=== PATIENT | male | born 1965 | race Caucasian/White ===

== ENCOUNTER 2021-01-16 08:25 | Emergency (ER) | payer OTHER ==
[2021-01-16 09:15] LABS: BASOPHIL 0.2 % (0-2); EOSINOPHIL 0.2 % (0-5); HCT 45.8 % (42.0-52.0); HGB 15.7 g/dl (13.2-18.0); LYMPHOCYTE 15.6 % (15-48); MCH 30.9 pg (25.0-31.0); MCHC 34.3 g/dL (32.0-36.0); MCV 90.2 fL (78.0-100.0); MONOCYTE 4.3 % (0-12); MPV 10.5 fL (6.0-9.5); NEUTROPHIL 79.2 % (41-80); NRBC 0; PLT 284 K/uL (150-400); RBC 5.08 M/uL (4.70-6.00); RDW 12.3 % (11.5-14.0); WBC 16.6 K/uL (4.0-10.5)
[2021-01-16 09:32] LABS: ALBUMIN 3.8 g/dL (3.4-5.0); BILIRUBIN - TOTAL 0.5 mg/dL (0.2-1.0); BUN/CREAT RATIO (CALC) 14.6 RATIO; CREATININE 0.96 mg/dL (0.67-1.17); GLOBULIN (CALCULATION) 3.8 g/dL; POTASSIUM 4.2 mmol/L (3.5-5.1); TOTAL PROTEIN 7.6 g/dL (6.4-8.2)
[2021-01-16 10:05] LABS: CORONAVIRUS 2019 SARS-COV-2 NEGATIVE (NEGATIVE); INFLUENZA A NAA NEGATIVE (NEGATIVE)
[2021-01-16 10:21] LABS: BILIRUBIN NEGATIVE (NEGATIVE); BLOOD NEGATIVE Ery/uL (NEGATIVE); CLARITY CLEAR (CLEAR); COLOR YELLOW (YELLOW); GLUCOSE (U) NORMAL (NORMAL); LEUKOCYTES NEGATIVE Leu/uL (NEGATIVE); NITRITE NEGATIVE (NEGATIVE); PROTEIN NEGATIVE (NEGATIVE); UROBILINOGEN 0.2 mg/dL (0.2-1.0)
[2021-01-16] MEDS ORDERED: METRONIDAZOLE500 MG PO (10:44)
[2021-01-16] MEDS ORDERED: ONDANSETRON ODT4 MG PO (10:44)
[2021-01-16] MEDS ORDERED: CIPRO500 MG PO (10:44)
[2021-01-16] MEDS ORDERED: DICYCLOMINE HCL20 MG PO (10:54)
== END 2021-01-16 10:58 | disposition home or self-care (01) ==
LOC: FER 08:25
PROVIDERS: Internal Medicine
DX: A09 Infectious gastroenteritis and colitis, unspecified (principal); I10 Essential (primary) hypertension; F17.210 Nicotine dependence, cigarettes, uncomplicated; Z20.822 Contact with and (suspected) exposure to COVID-19
CPT/HCPCS: 36415; 80053; 81003; 83690; 84484; 85025; 87205; 93005; J7120; U0002

== ENCOUNTER → 2021-03-09 | Day surgery (SDC) | payer OTHER ==
[~2021-03-09] VITALS: Ht 188 cm; Wt 102.0 kg
[~2021-03-09] MED LIST: BUPROPION XL150 MG PO; CIPRO500 MG PO; DICYCLOMINE HCL20 MG PO; METRONIDAZOLE500 MG PO; NADOLOL 20MG TA20 MG PO; ONDANSETRON ODT4 MG PO; SIMVASTATIN20 MG PO
== END | disposition home or self-care (01) ==
LOC: FAS 09:18
DX: D12.3 Benign neoplasm of transverse colon (principal); K62.1 Rectal polyp; K52.9 Noninfective gastroenteritis and colitis, unspecified; Z86.010 Personal history of colon polyps; I10 Essential (primary) hypertension; E78.00 Pure hypercholesterolemia, unspecified; F17.210 Nicotine dependence, cigarettes, uncomplicated
CPT/HCPCS: J2704; J7120

== ENCOUNTER 2021-03-15 08:56 | Emergency (ER) | payer OTHER ==
[~2021-03-15] VITALS: Ht 188 cm; Wt 99.8 kg
[2021-03-15 09:39] LABS: BASOPHIL 0.4 % (0-2); EOSINOPHIL 2.6 % (0-5); HCT 45.3 % (42.0-52.0); HGB 14.9 g/dl (13.2-18.0); LYMPHOCYTE 22.2 % (15-48); MCH 30.2 pg (25.0-31.0); MCHC 32.9 g/dL (32.0-36.0); MCV 91.7 fL (78.0-100.0); MONOCYTE 7.2 % (0-12); MPV 10.5 fL (6.0-9.5); NEUTROPHIL 67.1 % (41-80); NRBC 0; PLT 270 K/uL (150-400); RBC 4.94 M/uL (4.70-6.00); RDW 12.7 % (11.5-14.0); WBC 12.3 K/uL (4.0-10.5)
[2021-03-15 09:51] LABS: INR 0.91 (0.9-1.2); PROTHROMBIN TIME 11.7 SECONDS (11.8-13.4)
[2021-03-15 09:52] LABS: PTT 28.3 SECONDS (24.4-34.7)
[2021-03-15 09:53] LABS: D-DIMER 0.4 ug/mLFEU (0.00-0.41)
[2021-03-15 10:08] LABS: ALBUMIN 3.8 g/dL (3.4-5.0); BILIRUBIN - TOTAL 0.3 mg/dL (0.2-1.0); BUN/CREAT RATIO (CALC) 13.9 RATIO; CREATININE 1.15 mg/dL (0.67-1.17); GLOBULIN (CALCULATION) 3.9 g/dL; POTASSIUM 4.2 mmol/L (3.5-5.1); TOTAL PROTEIN 7.7 g/dL (6.4-8.2)
== END 2021-03-15 14:32 | disposition home or self-care (01) ==
LOC: FER 08:56
PROVIDERS: Emergency Medicine Emergency Medical Services
DX: R07.89 Other chest pain (principal); I10 Essential (primary) hypertension; F17.210 Nicotine dependence, cigarettes, uncomplicated
CPT/HCPCS: 36415; 71045; 80053; 83690; 84484; 85025; 85379; 85610; 85730; 93005